=== PATIENT | female | born 1940 | race Caucasian/White ===

== ENCOUNTER 2016-07-06 19:57 | Emergency (ER) | payer MEDICARE, OTHER ==
[~2016-07-06] VITALS: Ht 157.5 cm; Wt 63.6 kg
[~2016-07-06 19:57] MED LIST: ASPI81TA3 PO; CETI10CA PO; DONE10TA42 PO; FERR250T PO; LAMO25TA PO; LEVO88TA4 PO; MULT-666 PO; SIMV80TA4 PO
[2016-07-06 20:20] VITALS: BP 151/71; PULSE 81; RESP 16; O2SAT 99
[2016-07-06 20:57] LABS: BASOPHILS % (AUTO) 0.1 % (0-3); EOSINOPHILS % (AUTO) 0 % (0-5)
[2016-07-06 21:00] LABS: MONOCYTES % (AUTO) 3.1 % (4-12); Mean Corpuscular Hemoglobin 27.9 pg (27.0-35.0); Mean Corpuscular Volume 84.3 fL (81-100); NEUTROPHILS % (AUTO) 91.1 % (40-74); Platelet Count 178 bil/L (150-400)
[2016-07-06 21:18] LABS: Magnesium 2.2 mg/dL (1.6-2.6)
--- NOTE | 2016-07-06 22:39 | ED.REPORT ---
HPI- Female Date of Service Jul 06, 2016 ED Provider: Homer Trivedi DO A 76 year old female with a history of dementia and TIA presents to the ED complaining of urinary frequency that began a few days ago. The patient's grandson left a voicemail stating that the patient has been complaining of dysuria and increased urinary frequency for the past 3 days. She denies any fever, changes in appetite, or changes in behavior. Patient is a poor historian. Nursing Notes Stated Complaint: POSSIBLE BLADDER OR YEAST INFECTION Chief Complaint: Female Abdominal Pain Nursing Notes Reviewed: Yes Allergies: Coded Allergies: diphenhydramine (Verified Allergy, Severe, Loopy/Confusion, 07/06/16) IV form only, PO Benadryl okay Penicillins (Verified Allergy, Unknown, 07/06/16) Sulfa (Sulfonamide Antibiotics) (Verified Allergy, Unknown, 07/06/16) Scheduled Aspirin Chew (Aspirin Chew) 81 Mg Chew 324 MG PO DAILY Cetirizine HCl (Zyrtec) 10 Mg Capsule 10 MG PO DAILY Donepezil (Donepezil) 10 Mg Tablet 10 MG PO QPM Ferrous Sulfate, Dried (Slow Release Iron) 168 Mg Tablet.er 168 MG PO DAILY Lamotrigine (Lamotrigine) 25 Mg Tablet 75 MG PO BID Levothyroxine (Levothyroxine) 88 Mcg Tablet 88 MCG PO DAILY Multivitamin (Once Daily) 1 Each Tablet 1 EACH PO DAILY Simvastatin (Simvastatin) 80 Mg Tablet 80 MG PO HS General Time Seen by MD: 22:38 Chief Complaint Urinary frequency Hx Obtained From: Patient, Other family... (Grandson) Arrived By: Walk-in Sudden in Onset?: No Onset Occurred: 3 days ago Symptom Duration: Since onset Associated with: Reports: UTI symptoms... (Dysuria), Denies: Fever Pertinent Negative: Pt denies other symptoms Recent Healthcare: Recent hospitalization (04/21: TIA ) Past Medical History Past Medical History Dementia Reports: Stroke, Transient ischemic attack Past Surgical History None reported Smoking History Unknown if Ever Smoker Social History Alcohol Use: Denies alcohol use Drug Use: Denies drug use Other Social History: Good social support, Local resident Ambulatory Status Independent Review of Systems Limited ROS due to patient dementia Constitutional: Denies: Chills, Fever GI: Denies: Abdominal pain, Nausea, Vomiting Female: Reports: Dysuria, Urinary frequency, Urination increased Neurologic: Denies: Change LOC Complete sys rev & neg: except as marked. Physical Exam Initial Vital Signs Vital Signs (First) Date Time Temp Pulse Resp B/P Pulse Ox O2 Delivery O2 Flow Rate FiO2 07/06/16 20:20 35.9 81 16 151/71 99 Room Air Initial VS: Reviewed Head / Eyes: Atraumatic, Normocephalic, PERRL Extremities: Vascular intact, Neuro intact, No swelling, No tenderness Skin: Warm, Dry, No cyanosis Psychiatric: Mood/affect normal, Behavior normal, Normal thought content Female Genitourinary: Exam deferred General/Constitutional: Awake, Alert, No acute distress GENERAL: Patient is demented Respiratory / Chest: Atraumatic, Breath sounds NL, Breath sounds = bilat Cardiovascular: Heart rate NL, Regular rhythm, Heart sounds NL Abdomen: Atraumatic, Soft, Non-tender Interpretation & Diagnostics Lab Results Interpretation Result Diagram: 07/06/16204407/06/162044 Test 07/06/16 20:45 07/06/16 23:09 White Blood Count 9.9th/mm3 (3.8-10.1) Red Blood Count 5.23mil/mm3 (3.90-5.20) Hemoglobin 14.6g/dL (12.0-15.6) Hematocrit 44.1% (35.0-46.0) Mean Corpuscular Volume 84.3fL (81-100) Mean Corpuscular Hemoglobin 27.9pg (27.0-35.0) Mean Corpuscular Hemoglobin Concent 33.1% (32.0-37.0) Red Cell Distribution Width 20.0% (12.3-15.4) Platelet Count 178bil/L (150-400) Neutrophils (%) (Auto) 91.1% (40-74) Lymphocytes (%) (Auto) 4.7% (14-46) Monocytes (%) (Auto) 3.1% (4-12) Eosinophils (%) (Auto) 0% (0-5) Basophils (%) (Auto) 0.1% (0-3) Sodium Level 137mEq/L (134-144) Potassium Level 4.0mEq/L (3.5-5.2) Chloride Level 101mEq/L (97-108) Carbon Dioxide Level 21mmol/L (18-29) Blood Urea Nitrogen 18mg/dL (8-27) Creatinine 0.86mg/dL (0.57-1.00) Estimat Glomerular Filtration Rate 92mL/min (>59) Glucose Level 128mg/dL (60-99) Calcium Level 9.4mg/dL (8.5-10.1) Magnesium Level 2.2mg/dL (1.6-2.6) Total Bilirubin 0.8mg/dL (0.0-1.2) Aspartate Amino Transf (AST/SGOT) 16U/L (0-50) Alanine Aminotransferase (ALT/SGPT) 23U/L (0-32) Alkaline Phosphatase 57U/L (25-165) Total Protein 6.5g/dL (6.4-8.4) Albumin 3.8g/dL (3.4-5.0) Lipase 16U/L (13-60) Urine Color Yellow (YELLOW) Urine Appearance Turbid (CLEAR,HAZY) Urine pH 7.5 (5.0-8.0) Urine Specific [place] 1.025 (1.003-1.035) Urine Protein 30mg/dL (NEG,TRACE) Urine Glucose (UA) Negativemg/dL (NEGATIVE) Urine Ketones 15mg/dL (NEGATIVE) Urine Occult Blood Moderate (NEGATIVE) Urine Nitrite Positive (NEGATIVE) Urine Bilirubin Negative (NEGATIVE) Urine Urobilinogen Normalmg/dL (NORMAL) Urine Leukocyte Esterase Large (NEGATIVE) Urine RBC 11-50/hpf (0-2) Urine WBC Packed/hpf (0-5) Urine Epithelial Cells Moderate/hpf (NONE-MOD) Urine Crystals Triple phosphate Urine Bacteria Many/hpf (NONE-FEW) Urine Hyaline Casts None/lpf (NONE) Urine Granular Casts None seen (NONE SEEN) Urine Waxy Casts None seen (NONE SEEN) Urine Red Blood Cell Casts None seen (NONE SEEN) Urine White Blood Cell Casts None seen (NONE SEEN) Urine Mucus Present (None Seen) Urine Trichomonas None seen (NONE SEEN) Urine Yeast None (NONE SEEN) Urinalysis Comment None Urine Culture Reflexed Indicated Re-Eval/Medical Decision Re-Evaluation/Progress : Time of Eval: 00:42 Patient Status: Condition improved Re-Evaluation/Progress Note: Patient is rechecked. She is informed of her lab results and likely diagnosis. All questions are addressed. She understands and agrees with the treatment plan. Counseled Regarding: Diagnosis, Lab results, Need for follow-up, When/why to return to ED Discharge & Departure Impression: Primary Impression: Urinary tract infection Urinary tract infection type: site unspecified Hematuria presence: without hematuria Qualified Code: N39.0 - Urinary tract infection, site not specified Disposition: Home Discharge Condition All VS Reviewed: Yes Condition: Stable Patient Instructions: Urinary Tract Infection in Women (ED) Additional Instructions: Thank you for trusting us with your care this evening. Your blood work and exam are reassuring and I believe your symptoms may be due to a urinary tract infection. Please Macrobid 2 times daily for the next 5 days and drink plenty of fluids fro the next few days. Schedule a follow up appointment with your primary care provider in the next 2-3 days for a recheck. Please return to the emergency department for any new or worsening symptoms. Referrals: Freddie Deutsch DO (PCP) Bud Attestation Portions of this note were transcribed by Anita Cantu. I, Dr. Trivedi personally performed the history, physical exam and medical decision-making; I reviewed and confirmed the accuracy of the information in the transcribed note. Signed by: Bud Blanco, 07/07/16 0100. copies to: Freddie Deutsch Todd P DO Jul 06, 2016 22:39 ANITA CANTU Jul 07, 2016 00:34
[2016-07-06 23:23] LABS: APPEARANCE,URINE TURBID (CLEAR,HAZY); COLOR,URINE YELLOW (YELLOW); OCCULT BLOOD,URINE MODERATE (NEGATIVE); PH,URINE 7.5 (5.0-8.0); UROBILINOGEN,URINE NORMAL (NORMAL)
[2016-07-06] MEDS ORDERED: Peds - CefTRIAXone 40 mg/mL 2,000 MG in Syringe 1 EACH IV ONE (23:35)
[2016-07-06] MEDS ORDERED: cefTRIAXone 2,000 mg/D5W 50 mL IV Minibag Plus IV ONE ×2 (23:40)
[2016-07-07] MEDS ORDERED: cefTRIAXone Inj 1,000 MG, Lidocaine PF 1% Inj 2.1 ML in Syringe 0 EACH IM ONE (00:25)
[2016-07-07] MEDS ORDERED: cefTRIAXone 2,000 mg Inj IM ONE (00:35)
[2016-07-07 01:43] VITALS: BP 150/68; PULSE 61; RESP 16; O2SAT 99
== END 2016-07-07 01:44 | disposition home or self-care (01) ==
LOC: SED 19:57
DX: N39.0 Urinary tract infection, site not specified (principal); B96.4 Proteus (mirabilis) (morganii) as the cause of diseases classified elsewhere; F03.90 Unspecified dementia, unspecified severity, without behavioral disturbance, psychotic disturbance, mood disturbance, and anxiety; Z86.73 Personal history of transient ischemic attack (TIA), and cerebral infarction without residual deficits; Z79.82 Long term (current) use of aspirin; Z88.0 Allergy status to penicillin; Z88.2 Allergy status to sulfonamides; Z88.8 Allergy status to other drugs, medicaments and biological substances
CPT/HCPCS: 36415; 80053; 81000; 83690; 83735; 85025; 87077; 87086; 87088; 87186; 96372; 99284; J0696